=== PATIENT | male | born 1990 | race American Indian/Alaskan Native ===

== ENCOUNTER 2016-08-09 22:13 | Emergency (ER) | payer OTHER ==
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
[2016-08-10 05:41] VITALS: BP 134/70
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
[2016-08-10] MEDS ORDERED: NORCO 5/325 PO ONE (06:30)
[2016-08-10] MEDS ORDERED: FLEXERIL PO ONE (06:30)
== END 2016-08-10 07:01 | disposition home or self-care (01) ==
LOC: ED 22:13
DX: S16.1XXA Strain of muscle, fascia and tendon at neck level, initial encounter (principal); M54.5 Low back pain; G44.319 Acute post-traumatic headache, not intractable; V59.9XXA Occupant (driver) (passenger) of pick-up truck or van injured in unspecified traffic accident, initial encounter; Y93.89 Activity, other specified; Y99.8 Other external cause status; Y92.488 Other paved roadways as the place of occurrence of the external cause
CPT/HCPCS: 70450; 72131